=== PATIENT | male | born 1970 | race African-American/Black ===

== ENCOUNTER → 2016-06-15 | Outpatient (CLI) | payer BC ==
--- NOTE | 2016-06-15 15:36 | KCIC ---
PROCEDURE MRI right shoulder without contrast. HISTORY Right shoulder pain after a fall. TECHNIQUE MRI of the right shoulder was performed without intravenous contrast. FINDINGS Acromioclavicular osteoarthritis is moderate. There is a small inferiorly directed clavicular spur. The acromion is type 1. There is a full-thickness tear of the supraspinatus tendon. The defect measures 2.9 centimeters. There is 2.9 centimeters retraction. The supraspinatus muscle is only mildly atrophic without fatty infiltration. There is diffuse increased signal within the anterior infraspinatus fibers consistent with severe tendinopathy. The subscapularis is intact. The long head biceps tendon is intact and located in the groove. There is no displaced labral tear. The glenohumeral articular cartilage demonstrates no focal defects. There is no joint effusion. Alignment is maintained. IMPRESSION - Full-thickness recurrent tear of the supraspinatus tendon measuring 2.9 x 2.9 centimeters. - Severe tendinopathy of the anterior infraspinatus fibers. - Moderate acromioclavicular osteoarthritis. Electronically signed by: Nathen Yee (Jun 15, 2016 15:35:06)
== END | disposition home or self-care (01) ==
LOC: KCIC MRI 08:34
PROVIDERS: ATTEND Family Medicine
DX: M19.011 Primary osteoarthritis, right shoulder (principal); S46.911A Strain of unspecified muscle, fascia and tendon at shoulder and upper arm level, right arm, initial encounter; X58.XXXA Exposure to other specified factors, initial encounter; Y93.89 Activity, other specified; Y92.89 Other specified places as the place of occurrence of the external cause; Y99.8 Other external cause status; M75.81 Other shoulder lesions, right shoulder
CPT/HCPCS: 73221